=== PATIENT | male | born 1955 | race Caucasian/White ===

== ENCOUNTER → 2021-12-16 | Outpatient (CLI) | payer OTHER ==
--- NOTE | 2021-12-16 10:34 | DIREP ---
PROCEDURE:CHEST 2 VIEWS COMPARISON:None. INDICATIONS:Z00.00 HISTORY AND PHYSICAL EVALUATION FINDINGS: LUNGS/PLEURA:No significant pulmonary parenchymal abnormalities. No effusions. No pneumothorax VASCULATURE:Normal. Unremarkable pulmonary vasculature. CARDIAC:Normal. No cardiac silhouette abnormality or cardiomegaly. MEDIASTINUM:Normal. No visible mass or adenopathy. BONES:Moderate degenerative disc disease and spondylosis without visible acute abnormalities. OTHER:Negative. CONCLUSION:No acute findings. Dictated by: Zac Dumont MD on 12/16/2021 at 10:32 AM
== END | disposition home or self-care (01) ==
LOC: RAD 10:05
PROVIDERS: ATTEND Nurse Practitioner
DX: Z00.00 Encounter for general adult medical examination without abnormal findings (principal); M47.814 Spondylosis without myelopathy or radiculopathy, thoracic region
CPT/HCPCS: 71046